=== PATIENT | female | born 1940 | race Caucasian/White ===

== ENCOUNTER → 2017-11-14 | Outpatient (CLI) | payer OTHER ==
[~2017-11-14] MED LIST: ACETAMINOPHEN-1 EAC1 PO; ADULT LOW DOSE81 MG PO; ALLOPURINOL 10100 M1 PO; ANCEF 1GM1 GM/50 M2 IV; B12INJ IM; CARVEDILOL6.25 MG PO; CIPROFLOXACIN500 M1 PO; DOXYCYCLINE 10100 MG PO; ENALAPRIL MALEA10 M1 PO; FLEXERIL PO; FUROSEMIDE 20 M20 MG PO; HYDROCHLOROTH12.5 MG PO; HYDROCODONE-AP1 EA15 PO; HYDROCODONE-AP1 EAC6 PO; IRON325 PO; LEVEMIR 30 UNIT; LEVEMIR SUBQ; MACRODANTIN50 MG PO; MAGOX 400400 MG PO; METFORMIN 500500 MG PO; NEURONTIN 300300 M1 PO; NORCO 5-325 TA1 EACH PO; NORVASC5 MG PO; NOVOLOG100 UNIT/1 SUBQ; PREDNISONE 10 M10 MG PO; PROTONIX40 M1 PO; RANITIDINE 150150 MG PO; RANITIDINE HCL150 M1 PO; SIMVASTATIN40 MG PO; SLOW RELEASE I142 M1 PO; SYNTHROID 0.10.1 M1 PO; VICODIN ES TAB1 EACH PO; VICTOZA0.6 MG/0.1 SUBQ; WELCHOL 625 MG625 MG PO
--- NOTE | 2017-11-17 06:48 | SLEEP ---
[address] [address] SLEEP STUDY REPORT Name: CARLOS BHATT Room: [facility]#: [id number] Admission: 11/14/17 Attend Phys: Chantelle Stuart Discharge: Date of : 40 Report #: [id number] THIS REPORT FOR: //name// CC: Jeremy Will This study has been reviewed in its entirety by a board certified sleep specialist DATE OF SERVICE: 11/14/2017 ATTENDING PHYSICIAN: Dr. Mary Will. The patient is a 77-year-old who weighs 256 pounds and is 65 inches tall with a BMI of 42.6. The patient had a previous history of sleep apnea and was on CPAP. The patient was referred for another split night study. This was a diagnostic study. During the night study, the patient spent 409 minutes in bed and slept for 112 minutes with a poor sleep efficiency of 27.5%. Sleep latency was 27.1 minutes with a REM latency which was absent due to lack of REM sleep. Overall, sleep architecture showed normal stage I sleep, significantly increased stage II sleep, which was 97% of the total sleep time. There was absent N3 sleep and absent REM sleep. During the night study, the patient had no significant apneas. There were no hypopneas. The patient did have a respiratory effort related arousals. The patient's apnea-hypopnea index for the entire night was 0 per hour. Review of EKG revealed an average heart rate of 89 beats per minute. No sustained arrhythmias were observed. PLMs were seen at an index of 13 per hour and 3.7 per hour caused EEG arousals. Nocturnal oximetry study revealed an average oxygen saturation of 94% with the lowest of 91%. No significant desaturations of less than 90% were observed. Due to low AHI, the patient did not meet the split night criteria for CPAP initiation. IMPRESSION: 1. No clinically significant sleep disordered breathing. The patient's AHI for the entire night was 0 per hour. 2. Significantly reduced sleep efficiency of 27%, [place] [id number] SLEEP STUDY REPORT Name: CARLOS BHATT Room: [facility]#: [id number] Admission: 11/14/17 Attend Phys: Chantelle Stuart Discharge: Date of : 40 Report #: [id number] maintenance insomnia. 3. Mild PLMs without any significant EEG arousals. This does not need to be treated. 4. No clinically significant nocturnal hypoxia. RECOMMENDATIONS: 1. The patient did not meet the criteria for CPAP initiation. The patient's sleep efficiency was poor and due to reduced sleep, severity of sleep apnea can be underestimated. 2. If clinical suspicion for sleep apnea is still high, then a home sleep study can also be performed. 3. Avoid [employer] depressants. 4. Weight loss is strongly advised. 5. Caution regarding driving until the patient's hypersomnia is resolved. <ELECTRONICALLY SIGNED> By: Isidoro Torres MD 11/17/17 [id number] Torres MD /nt
== END ==
LOC: M.SLEEPLAB 20:05
DX: G47.33 Obstructive sleep apnea (adult) (pediatric) (principal)